=== PATIENT | male | born 1955 | race Caucasian/White ===

== ENCOUNTER → 2017-05-20 08:18 | Outpatient (CLI) | payer BC ==
[~2017-05-20] VITALS: Ht 170.2 cm; Wt 86.4 kg
--- NOTE | ~2017-05-20 | HEMODYNAMI ---
PATIENT:MACIEJ TORRES MEDICAL RECORD: [id number] : 55 LOCATION:[facility] ADMISSION DATE: 05/20/17 Generatedon:05/20/201710:36 Patient name: MACIEJ TORRES Patient #: [id number] : 1955 Date of study: 05/20/2017 Page: Of Hemodynamic Procedure Report Patient Data Patient Demographics Procedure consent was obtained First Name: MACIEJ Gender: Male Last Name: BRIAN : 1955 Middle Initial: R Age: 61 year(s) Patient #: [id number] Race: SSN: [id number] Additional ID: [id number] Contact details Address: [address] [place] [address] [facility] State: [place] City: [place] Zip code: [address] Past Medical History Allergies Allergen Reaction Date Comments Reported Other allergy 05/20/2017 sulfa Admission Admission Data Admission Date: 05/20/2017 Admission Time: 8:18 Lab Results Lab Result Date: 05/20/2017 Lab Result Time: 0:00 Biochemistry Name Units Result Min Max BUN mg/dl 14 --(--*-)-- 7 18 Creatinine mg/dl 0.8 --(-*--)-- 0.6 1.3 CBC Name Units Result Min Max Hemoglobin g/dl 15.9 --(--*-)-- 13.5 17.5 Procedure Procedure Types Cath Procedure Diagnostic Procedure LHC LHC w/Coronaries FFR/IVUS Intra-Coronary IVUS Initial Miscellaneous Procedures Moderate Sedation up to 30 minutes Procedure Description Procedure Date Procedure Date: 05/20/2017 Procedure Start Time: 10:17 Procedure End Time: 10:31 Procedure Staff Name Function Terence Hood MD Performing Physician Matilda Glynn RT Monitor Lucy Calderon RT Scrub Jimbo Hanson RN Nurse Jo Ha RN Nurse Procedure Data Cath Procedure Fluoroscopy Diagnostic fluoroscopy Total fluoroscopy Time: 3 time: 3 min min Diagnostic fluoroscopy Total fluoroscopy dose: 820 dose: 820 mGy mGy Contrast Material Contrast Material Type Amount (ml) Isovue 300 52 Entry Location Entry Primary Successful Side Size Upsize Upsize Entry Closure Succes sful Closure Location (Fr) 1 (Fr) 2 (Fr) Remarks Device Remarks Femoral Right 5 Fr 6 Fr Exoseal artery Short Estimated blood loss: 5 ml Diagnostic catheters Device Type Used For End Catheter Placement MULTIPACK Pigtail 5 Fr LV Angiography catheter MULTIPACK JL 4.0 5Fr Left Coronary catheter Angiography MULTIPACK 3DRC 5Fr Right Coronary catheter Angiography Procedure Complications No complications Procedure Medications Medication Administration Route Dosage 0.9% NaCl I.V. Oxygen NC 2 l/min Lidocaine 2% added to field 20 Heparin Flush Bag added to field 2 bags (1000units/500ml NS) Versed I.V. 1 mg Fentanyl I.V. 50 mcg Fentanyl I.V. 50 mcg Versed I.V. 1 mg Fentanyl I.V. 25 mcg Hemodynamics Rest HGB: 15.9 (g/dl) Heart Rate: 59 (bpm) Pressure Samples Time Site Value (mmHg) Purpose Heart Use Rate(bpm) 10:19 LV 94/23,27 Snapshot 76 10:19 LV 182/36,38 Snapshot 67 Snapshots Pre Cath Intra NCS Post Cath Vital Signs Time Heart Resp SPO2 etCO2 NIBP (mmHg) Rhythm Pain Sedation Rate (ipm) (%) (mmHg) Status Level (bpm) 10:03:22 102 16 96 40.1 126/84(97) NSR 0 (11) 10(A) , No pain 10:07:30 74 16 96 41.6 126/78(100) NSR 0 (11) 10(A) , No pain 10:11:32 67 18 98 46.1 117/94(108) NSR 0 (11) 10(A) , No pain 10:15:29 74 18 96 52.2 135/122(132) NSR 0 (11) 10(A) , No pain 10:19:35 76 20 94 59 156/100(138) NSR 0 (11) 9(A) , No pain 10:23:49 79 16 95 63.6 161/112(141) NSR 0 (11) 9(A) , No pain 10:28:05 85 18 98 65.1 154/118(146) NSR 0 (11) 10(A) , No pain Medications Time Medication Route Dose Verified Delivered Reason Notes Effec tiveness by by 10:01:44 0.9% NaCl I.V. kvo Terence Osorio used for ml/hr Sana Ha RN procedure 10:01:53 Oxygen NC 2 Terence Jo Per l/min Sana Ha RN physician 10:02:02 Lidocaine 2% added 20ml Terence Pratt to to vial Sana Hood MD [employer] 10:02:08 Heparin Flush added 2 Terence Pratt used for Bag to bags Sana Hood MD procedure (1000units/500ml field NS) 10:14:35 Versed I.V. 1 mg Terence Osorio for Sana Ha RN sedation 10:14:43 Fentanyl I.V. 50 Terence Osorio for mcg Sana Ha RN sedation 10:18:09 Fentanyl I.V. 50 Terence Lehmany for mcg Sana Ha RN sedation 10:18:15 Versed I.V. 1 mg Terence Osorio for Sana Ha RN sedation 10:19:27 Fentanyl I.V. 25 Terence Lehmany for mcg Sana Ha RN sedation Procedure Log Time Note 9:56:25 Informed consent obtained and on chart 9:56:29 Diagnostic Cath Status : Elective 9:56:51 Matilda Glynn RT(R) sent for patient. Start room use. 9:56:52 Time tracking: Regular hours 9:56:56 Plan of Care:Hemodynamics will remain stable., Cardiac rhythm will remain stable., Comfort level will be maintained., Respiratory function will remain adequate., Patient/ family verbilizes understanding of procedure., Procedure tolerated without complication., Recovers from procedure without complications.. 9:58:37 Patient received from Pre/Post Procedure Room to CCL 2 Alert and oriented. Tansferred to table in Supine position. 9:58:38 Warm blankets applied, and fransisco hugger turned on for patient comfort. 9:58:38 Correct patient and procedure confirmed by team. 9:58:39 ECG and BP/O2 sat monitors applied to patient. 10:01:44 0.9% NaCl kvo ml/hr I.V. was administered by Jo Ha RN; used for procedure; 10:01:53 Oxygen 2 l/min NC was administered by Jo Ha RN; Per physician; 10:02:02 Lidocaine 2% 20ml vial added to field was administered by Terence Hood MD; to sharp's; 10:02:08 Heparin Flush Bag (1000units/500ml NS) 2 bags added to field was administered by Terence Hood MD; used for procedure; 10:02:16 Vital chart was started 10:04:12 Baseline sample Acquired. 10:04:15 Rhythm: sinus rhythm 10:04:17 Full Disclosure recording started 10:04:30 H&P Date Dictated: 05/12/2017 Within 30 days and on chart., H&P Addendum completed by physician on day of procedure. (MUST COMPLETE FOR ALL OUTPATIENTS). 10:04:31 Pre-procedure instructions explained to patient. 10:04:32 Pre-op teaching completed and patient verbalized understanding. 10:04:33 Family in waiting room. 10:04:35 Patient NPO since Midnight. 10:04:46 Patient allergic to Other allergysulfa 10:04:50 Is the patient allergic to Iodine/contrast media? No. 10:04:51 Was the patient premedicated? No 10:04:52 Is patient on blood thinner?Yes 10:04:55 ACC The patient was administered the following blood thiners within the last 24 hours: ACCPlavix 10:05:00 Patient diabetic? No. 10:05:01 Previous problem with sedation/anesthesia? No ? 10:05:03 Snore? Yes 10:05:04 Sleep apnea? No 10:05:05 Deviated septum? No 10:05:06 Opens mouth fully? Yes 10:05:07 Sticks out tongue? Yes 10:05:09 Airway obstruction? No ? 10:05:13 Dentures? No ? 10:05:16 Pre procedure: right dorsailis pedis pulse 2+ Normal; easily identifiable; not easily obliterated 10:05:19 Pre procedure: left dorsailis pedis pulse 2+ Normal; easily identifiable; not easily obliterated 10:05:22 Patient pain scale 0/10 ?. 10:05:29 IV patent on arrival in right forearm with 0.9% NaCl at O. 10:05:38 reserve left arm 10:07:24 Lab Result : BUN 14 mg/dl 10:07:24 Lab Result : Creatinine 0.8 mg/dl 10:07:24 Lab Result : Hemoglobin 15.9 g/dl 10:07:30 Lab results completed and on chart. 10:07:51 Right groin area was prepped with chlora-prep and draped in sterile fashion 10:07:53 Alarms reviewed by RDominic N. 10:07:54 Sharps counted by scrub and verified by R.N. 10:07:55 Physician arrived 10::56 --------ALL STOP TIME OUT------ 10:07:56 Final Timeout: patient, procedure, and site verified with staff and physician. All members of the team are in agreement. 10:07:58 Right groin site verified by team. 10:08:00 Physical assessment completed. ASA score P 2 - A patient with mild systemic disease as per Terence Hood MD. 10:08:04 Sedation plan: IV Moderate Sedation Medication:Versed, Fentanyl 10:08:10 Use device set Femoral Dx 10:08:12 ACIST Syringe (81851) opened to sterile field. 10:08:12 Bag Decanter (2002S) opened to sterile field. 10:08:13 Medline Cath Pack ([id number]) opened to sterile field. 10:08:14 SHEATH 5FR Joffre (YEQ559) opened to sterile field. 10:08:15 DIAGNOSTIC WIRE .035 260cm J wire (290425) opened to sterile field. 10:08:16 ACIST Hand Control (08503) opened to sterile field. 10:08:16 ACIST Manifold (94007) opened to sterile field. 10:08:18 DIAGNOSTIC Multipack 5Fr catheter set (AS8867) opened to sterile field. 10:08:19 Tegaderm 4 x 4 (1626W) opened to sterile field. 10:12:54 Zero performed for pressure channel P1 10:14:35 Versed 1 mg I.V. was administered by Jo Ha RN; for sedation; 10:14:43 Fentanyl 50 mcg I.V. was administered by Jo Ha RN; for sedation; 10:17:06 Procedure started. 10:17:10 Local anesthetic to right femoral artery with Lidocaine 2% by Terence Hood MD.INITIAL ACCESS ONLY 10:18:09 Fentanyl 50 mcg I.V. was administered by Jo Ha RN; for sedation; 10:18:15 Versed 1 mg I.V. was administered by Jo Ha RN; for sedation; 10::27 Fentanyl 25 mcg I.V. was administered by Jo Ha RN; for sedation; 10::28 A 5 Fr sheath was inserted into the Right Femoral artery 10::41 A MULTIPACK Pigtail 5 Fr catheter was advanced over the wire and used for LV Angiography. 10::58 LV hemodynamics recorded. 10::59 LV gram done using BLANCO 10:20:02 Injector settings: Ml/sec: 5, Volume: 15, 10:20:19 EF : 55 % 10:20:24 Catheter removed. 10:20:33 A MULTIPACK JL 4.0 5Fr catheter was advanced over the wire and used for Left Coronary Angiography. 10:21:23 LCA angiography performed. 10::27 Injector settings: Ml/sec: 3, Volume: 6, 10:22:19 Catheter removed. 10:22:23 A MULTIPACK 3DRC 5Fr catheter was advanced over the wire and used for Right Coronary Angiography. 10:23:23 RCA angiography performed. 10:23:25 Injector settings: Ml/sec: 3, Volume: 6, 10:23:27 Catheter removed. 10:23:27 Proceeding to intervention. 10:23:48 GUIDE 6FR HS I catheter (LA6HSI) opened to sterile field. 10:23:49 [place] IVUS Catheter (06147H) opened to sterile field. 10:23:50 SHEATH 6FR Joffre (VXD056) opened to sterile field. 10:23:56 INFLATOR Merit BasixCompak (MD0432) opened to sterile field. 10:24:12 Sheath upsized to a 6 Fr Short. 10:24:25 6 Fr hs1 guide catheter was inserted over the wire 10:25:42 WHISPER 190cm wire ([id number]) opened to sterile field. 10:25:54 whisper wire advanced. 10:26:49 Wire advanced across lesion. 10:26:58 IVUS catheter advanced over wire. 10:28:18 IVUS pass to RCA lesion performed. 10:28:24 IVUS catheter removed over wire. 10:28:44 EXOSEAL 5Fr (EX500) opened to sterile field. 10:29:20 Wire removed. 10:29:21 Guide catheter removed. 10:29:28 Sheath removed intact; hemostasis achieved with Exoseal to the Right Femoral artery. 10:29:30 Procedure ended.(Physican Out) 10:29:40 Fluoroscopy time 03.00 minutes. 10::44 Fluoroscopy dose: 820 mGy 10::44 Flurop Dose total: 820 10:30:08 Contrast amount:Isovue 300 52ml. 10:30:10 Sharps counted by scrub and verified by R.N. 10:30:13 Insertion/operative site no bleeding no hematoma. 10:30:15 Post-op/insertion site Right Femoral artery dressed using a 4 x 4 and Tegaderm. 10:30:18 Post right femoral artery:stable 10:30:19 Post Procedure Pulses reassessed and unchanged 10:30:22 Post procedure rhythm: unchanged. 10:30:25 Estimated blood loss: 5 ml 10:30:27 Post procedure instruction explained to patient.Patient verbalizes understanding. 10:30:27 Patient needs reinforcement of post procedure teaching. 10:30:45 Procedure type changed to Cath procedure, Diagnostic procedure, LHC, LHC w/Coronaries, FFR/IVUS, Intra-Coronary IVUS Initial, Miscellaneous Procedures, Moderate Sedation up to 30 minutes 10:30:46 Procedure and supply charges have been captured, reviewed, submitted and are correct. 10:30:51 Procedure Complication : No complications 10:30:53 Vital chart was stopped 10:30:53 See physician's report for complete and final results. 10:31:13 Report given to Pre/Post Procedure Room. 10:31:18 Patient transfered to Pre/Post Procedure Room with Stretcher. 10:31:20 Procedure ended. 10:31:20 Full Disclosure recording stopped 10:31:25 End room use (Document Last) Device Usage Item Name Manufacture Quantity Catalog Hospital Part Current Minimal L ot# / Number Charge Number Stock Stock Serial# Code ANTONY Acist 1 67634 250666 521814 221355 20 Syringe [employer] Inc (87951) Systems Inc Bag Microtek 1 285521 64147 684424 5 Decanter Phynd Technologies[employer] Inc Inc. () Medline Cardinal 1 [id number] 065554 51248 533947 5 Cath Pack Health ([id number]) SHEATH 5FR Terumo 1 XYE230 202904 981568 617422 40 Joffre (GOH806) DIAGNOSTIC St [place] 1 242104 278535 218446 424476 30 WIRE .035 260cm J wire (810685) ACIST Hand Acist 1 14097 210101 246122 557018 5 Control Medical (86200) Systems Inc ACIST Acist 1 19914 338516 112207 174329 5 Manifold Medical (51325) Systems Inc DIAGNOSTIC Cardinal 1 DY3862 643016 27187 828618 30 Multipack Health 5Fr catheter set (YW6178) Tegaderm 4 3M 1 1626W 476621 973900 668965 5 x 4 (1626W) MULTIPACK Cardinal 1 675088 5 Pigtail 5 Health Fr catheter MULTIPACK Cardinal 1 890789 5 JL 4.0 5Fr Health catheter MULTIPACK Cardinal 1 366757 5 3DRC 5Fr Health catheter GUIDE 6FR Medtronic 1 LA6HSI 836655 40194 422034 1 HS I catheter (LA6HSI) [place] 1 59139C 880190 369827 487742 8 [place] IVUS Catheter (37811F) SHEATH 6FR Terumo 1 MKQ781 484269 078244 834869 40 Joffre (CTP240) INFLATOR Merit 1 JM8148 922405 100388 885247 15 [facility] BasixCompak (CM0147) WHISPER [place] 1 [id number] 872561 948757 133334 5 190cm wire Vascular (6523276LL) EXOSEAL 5Fr Cardinal 1 EX500 654898 018349 211628 10 (EX500) Health Signature Audit [place] Stage Time Signature Unsigned Intra-Procedure 05/20/2017 Matilda Glynn 10:36:41 AM RT(R) Signatures Monitor : Matilda Glynn RT Signature : Date : Time : [facility] [address] [place] [address]
[~2017-05-20 08:18] MED LIST: AMBIEN5 MG PO; BAYER CHEWABLE81 MG PO; CELEXA20 MG PO; CIPRO XR 5500 MG/BOT PO; FLAGYL500 MG PO; HYDROCODONE-APA1 TAB PO; PLAVIX75 MG PO; RED YEAST RICE600 MG PO
[2017-05-20 08:43] VITALS: BP 126/74; Ht 170.2 cm; Wt 86.4 kg
[2017-05-20 09:01] LABS: BASOPHILS 0.5 % (0-2); EOSINOPHILS 4.4 % (0-7); HEMATOCRIT 47.1 % (42.0-54.0); HEMOGLOBIN 15.9 g/dL (13.5-17.5); IMMATURE GRANULOCYTES 0.5 % (0-5); LYMPHOCYTES 24.4 % (15-50); MCH 29.9 pg (26.0-34.0); MCHC 33.8 g/dL (31.0-37.0); MCV 88.5 fL (80.0-100.0); MEAN PLATELET VOLUME 9.4 fL (7.4-10.4); MONOCYTES 12.5 % (2-11); NEUTROPHILS 57.7 % (40-80); PLATELET COUNT 190 10x3/uL (130-400); RBC 5.32 10x6/uL (4.20-6.10); RDW 13.3 % (11.5-14.5); WBC 6.3 10x3/uL (4.8-10.8)
[2017-05-20 09:10] LABS: CALC OSMOLALITY 275 mosm/kg (275-300); CALCIUM 8.3 mg/dL (8.5-10.1); CARBON DIOXIDE 27.3 mmol/L (21.0-32.0); CHLORIDE - SERUM 102 mmol/L (98-107); CREATININE - SERUM 0.8 mg/dL (0.6-1.3); GLUCOSE 108 mg/dL (74-106); POTASSIUM - SERUM 4.2 mmol/L (3.5-5.1); SODIUM 137 mmol/L (136-145); UREA NITROGEN 14 mg/dL (7-18); eGFR NON AFRICAN AMERICAN > 90 mL/min (90-120)
--- NOTE | 2017-05-20 11:00 | NUR ---
1100 LYING FLAT IN BED. NO RESP DISTRESS. NSR ON PHYSICIAN CREDENTIALING SPECIALIST, RATE 74 W NO C/O CHEST PAIN. PULSES PALP X 4. BRISK CAP REFILL X 4 EXT. FAMILY AT BEDSIDE.
--- NOTE | 2017-05-20 11:11 | NUR ---
VSS WITH CHEST PAIN DENIED 6 FR EXOSEAL R/GROIN CDI NO BLEEDING NO HEMATOMA NOTED INSTRUCTED PATIENT TO KEEP HEAD FLAT ON PILLOW WITH RLE STRAIGTHT
--- NOTE | 2017-05-20 12:02 | NUR ---
PATIENT CONTINUES TO SLEEP WITH NO DISTRESS NOTED. VSS AND FAMILY AT SIDE. 6 FR EXOSEAL R/GROIN CDI
--- NOTE | 2017-05-20 12:36 | NUR ---
PATIENT CONTINUES TO SLEEP WITH NO DISTRESS AT BEDSIDE. R/GROIN CDI
--- NOTE | 2017-05-20 12:59 | NUR ---
VERBAL AND WRITTEN DISCHARGE GONE OVER WITH PATIENT AND FAMILY. ALL VERBALIZED UNDERSTANDING. R/GROIN REMAINS CDI
--- NOTE | 2017-05-20 13:10 | NUR ---
PIV REMOVED WITH DRESSING APPLIED. CHEST PAIN IS DENIED WITH 6 FR EXOSEAL R/GROIN CDI. PATIENT UP TO GET DRESSED FOR DISCHARGE HOME
--- NOTE | 2017-05-20 13:24 | NUR ---
PATIENT TRANSPORTED VIA WC TO PARKING FOR FAMILY TO DRIVE HOME NO DISTRESS R/GROIN CDI
--- NOTE | 2017-05-26 12:15 | OP ---
PATIENT NAME: MACIEJ TORRES MEDICAL RECORD: [id number] :55 LOCATION:D.CAT ADMISSION DATE: SURGEON: YAN FUENTES MD DATE OF OPERATION: 05/20/2017 PROCEDURES: 1. Left heart catheterization. 2. Selective coronary angiography. 3. Left ventriculogram. INDICATION: Chest pain, abnormal nuclear stress test. DESCRIPTION OF PROCEDURE: After informed consent was obtained and after a detailed explanation of the risks, benefits as well as alternative therapies, the patient elected to proceed with angiogram and heart catheterization. The right femoral area was prepped and draped in normal sterile fashion. The right femoral artery was cannulated via modified Seldinger technique with placement of 6-[place] sheath. All catheters exchanged through this sheath. FINDINGS: Left ventriculogram was performed in standard 30-degree BLANCO view, reveals good cardiac wall motion, ejection fraction 55%. SELECTIVE CORONARY ANGIOGRAPHY: 1. Left main showed no significant angiographic disease. 2. Left anterior descending has previously placed stents in the LAD and diagonal, both of these are widely patent. No disease elsewise throughout the LAD or its branches. 3. Left circumflex shows moderate irregularities, but no flow-limiting stenosis. 4. The right coronary artery has previously placed stent. This is widely patent and is confirmed by intravascular ultrasound with no significant restenosis. No disease elsewise throughout the RCA or its branches. OVERALL IMPRESSION: Wide patency of the previously placed stents. No disease elsewise. Continue medical management of the coronary artery disease and cardiac risk factors. TRANSINT:[id number] Voice Confirmation ID: [id number] DOCUMENT ID: [id number] YAN FUENTES MD at 1215 CC: [id number] DICTATION DATE: 05/20/17 1033 DISTRIBUTOR CLEANER: 05/20/17 1251 DEP CLI 05/20/17 [facility] [address] [place] [address]
== END | disposition home or self-care (01) ==
LOC: D.CATH 08:18
PROVIDERS: Internal Medicine Interventional Cardiology
DX: I25.119 Atherosclerotic heart disease of native coronary artery with unspecified angina pectoris (principal); E78.5 Hyperlipidemia, unspecified; I10 Essential (primary) hypertension; Z87.891 Personal history of nicotine dependence; Z01.812 Encounter for preprocedural laboratory examination

== ENCOUNTER → 2017-07-14 10:41 | Outpatient (CLI) | payer BC ==
[2017-05-20 08:43] VITALS: BMI 29.8
== END | disposition home or self-care (01) ==
LOC: D.CT 07-10 13:00
DX: C80.1 Malignant (primary) neoplasm, unspecified (principal); R59.9 Enlarged lymph nodes, unspecified

== ENCOUNTER 2017-11-15 11:37 | Emergency (ER) | payer BC ==
[2017-05-20 08:43] VITALS: BMI 29.8
[2017-11-22 17:08] LABS: AEROBE ID Final report (())
== END 2017-11-15 14:10 | disposition home or self-care (01) ==
LOC: D.ER 11:37
PROVIDERS: Emergency Medicine
DX: K61.1 Rectal abscess (principal)

== ENCOUNTER 2017-11-16 08:57 | Inpatient (IN) | payer BC ==
[~2017-11-16] VITALS: Ht 170.2 cm; Wt 88.1 kg
--- NOTE | ~2017-11-16 | DS ---
PATIENT:MACIEJ TORRES :55 MEDICAL RECORD: [id number] DISCHARGE SUMMARY ADMISSION DATE: 11/16/17 DISCHARGE DATE: 11/18/17 DATE OF ADMISSION: 11/16/2017 DATE OF DISCHARGE: 11/18/2017 CONDITION ON DISCHARGE: Improved. ADMITTING DIAGNOSIS: Perirectal abscess. DISCHARGE DIAGNOSES: Perirectal abscess and history of arteriosclerotic heart disease. HOSPITAL COURSE: This patient is a 62-year-old gentleman who presented to the Emergency Room, was found to have perirectal abscess. The patient had an I&D and packing. He was discharged. The patient had followed up in my office on the day afterwards. He had had nausea and vomiting, was unable to maintain hydration. He had not had a bowel movement in over a week. He had also had fever, chills, and sweats. It was felt the patient should be admitted. PHYSICAL EXAMINATION: GENERAL: He is an ill-appearing white male. VITAL SIGNS: Blood pressure 122/80, pulse 90, respiration 14, and temperature 97. HEENT: Unremarkable. NECK: Supple. There is no adenopathy. HEART: Regular rate. LUNGS: Clear. He had a left perirectal abscess. The packing was removed. Copious amount of purulent serosanguineous fluid returned. Culture was taken. It was felt the patient should be admitted. He was admitted and started on IV antibiotics. He was seen in consultation by Dr. Cortes, local surgeon. The patient was taken to the operating room, where he underwent I&D of perirectal abscess. Cultures were obtained. On the , the patient's white count was 8.3, hemoglobin 12.5, hematocrit 38.2, and his platelets were 257. Sodium was 142, potassium 3, chloride 106, CO2 was 29.5. His BUN is 14, creatinine 0.1. His cultures grew out Enterococcus avium. The patient was stable. He was tolerating his diet well. It was felt the patient could be discharged. The patient was discharged on Levaquin 500 mg p.o. daily for 10 days, clindamycin 600 mg q. 8 hours, Demerol 100 mg tablet one every 4 hours p.r.n. severe pain, Phenergan 25 mg p.o. q. 6 hours p.r.n. nausea and vomiting, aspirin 81 mg once a day, Celexa 20 mg once a day, Ambien 5 mg p.o. at bedtime. The patient is to follow up with me in approximately one week. TRANSINT:[id number] Voice Confirmation ID: [id number] DOCUMENT ID: [id number] DISCHARGE SUMMARY REPORT [id number] MACIEJ TORRES JAMES MD at 0742 CC: [id number] DICTATION DATE: 12/13/17 1047 [facility]: 12/13/17 1552 DIS IN 11/18/17 [place] [address] [place] [id number]
--- NOTE | ~2017-11-16 | HP ---
PATIENT: MACIEJ TORRES MEDICAL RECORD: [id number] ACCOUNT: [id number] LOCATION:[facility] [id number] : 55 ADMISSION DATE: 11/16/17 HISTORY AND PHYSICAL EXAMINATION DATE OF ADMISSION: 11/16/2017 CHIEF COMPLAINT: Rectal pain. HISTORY OF PRESENT ILLNESS: The patient is a 62-year-old male, who presented to the Emergency Room yesterday, was found to have a perirectal abscess. This was I&D and packed. He was advised to follow up with me this morning. The patient states that since yesterday he has had nausea and vomiting nonstop, has not had a BM in over a week. He has had fever, chills, and sweats. Unable to keep any medications down. It is felt the patient has failed outpatient therapy and needs admission. PAST MEDICAL HISTORY: His past history is significant. He has had arteriosclerotic heart disease. He has had stents placed. He has also had history of perirectal abscess in the past. 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 He has had a history of having ADD as well as depression. FAMILY HISTORY: Father had diabetes mellitus, of a CVA. Brother had depression. Mother had emphysema. ALLERGIES: SULFA. MEDICATIONS: Include Adderall 30 mg p.o. every day, Ambien 5 mg p.o. at bedtime p.r.n. insomnia, aspirin 81 mg 1 p.o. every day, Celexa 40 mg once a day, gabapentin 300 mg daily, Prilosec 20 mg daily, tramadol 50 mg 1 or 2 every 6 hours p.r.n. pain. SOCIAL HISTORY: The patient was born and raised in the [facility]. He is the father of 3. 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 He is . He denies any alcohol or tobacco use. REVIEW OF SYSTEMS: GENERAL: He denies any headaches, seizure, or syncope. Denies change in visual or auditory acuity. He has had nausea and vomiting. He has had rectal pain. CARDIOVASCULAR: He denies any chest pain, palpitation, PND, or orthopnea. GASTROINTESTINAL: He has had nausea and vomiting. He has had rectal pain. No melena, hematochezia. GENITOURINARY: No urgency, frequency, or dysuria. PHYSICAL EXAMINATION: VITAL SIGNS: Today, he is currently afebrile at the present time. His weight is 185. Blood pressure 122/80, his pulse 90, respirations are 14, temperature is 97.2. HEENT: Head is normocephalic. No lesions. Ears: TMs clear. Eyes: Pupils equal, round, reactive to light. His extraocular movements are intact. His nasal cavity, oral cavity, oropharynx clear. NECK: Supple. There is no adenopathy. HEART: Regular rate and rhythm without any murmurs, gallops, or rub. LUNGS: Clear. HISTORY AND PHYSICAL [id number] MACIEJ TORRES EXTREMITIES: The patient does have a left perirectal abscess. The packing was removed. Copious amount of purulent serosanguineous fluid returned, approximately 10 cc. The patient has surrounding cellulitis present. ASSESSMENT: Status post perirectal abscess with I&D, history of arteriosclerotic heart disease, depression, history of squamous cell carcinoma resection of left upper arm with axillary resection. PLAN: Since the patient has failed conservative therapy, he will be admitted. He has been seen in the past by Dr. Bernal. He will be placed on Flagyl 500 mg IV every 8 hours, Levaquin 500 mg IV every 24 hours, Zofran 4 mg IV every 4 hours p.r.n. nausea and vomiting, Dilaudid p.r.n. pain. Blood cultures will be obtained. Also, the patient will be placed on D5 normal saline at 125 cc an hour. We will obtain a CT of the pelvic to further assess. TRANSINT:[id number] Voice Confirmation ID: [id number] DOCUMENT ID: [id number] MACIEJ RAGLAND MD at 1250 CC: [id number] DICTATION DATE: 11/16/17833 NET DEVELOPER CONSULTANT: 11/16/17 1119 ADM IN [place] [id number] [place] [address]
--- NOTE | ~2017-11-16 | OP ---
PATIENT NAME: MACIEJ TORRES MEDICAL RECORD: [id number] :55 LOCATION:D. D.2128 ADMISSION DATE:11/16/17 SURGEON: MACIEJ POTTS MD DATE OF OPERATION: 11/16/2017 SURGEON: Maciej Potts MD (JJ) PREOPERATIVE DIAGNOSIS: Left perirectal abscess. POSTOPERATIVE DIAGNOSIS: Left perirectal abscess. PROCEDURES PERFORMED: Incision and drainage of multiloculated complex abscess, 6 x 3 x 3 cm. Rectal examination under anesthesia. ANESTHESIA: General. COMPLICATIONS: None. SPECIMENS: Anaerobic and aerobic cultures. Case was grossly contaminated. OPERATIVE COURSE: After consent was obtained, the patient was taken to the operating room and placed in the supine position on the operating table. Next, general anesthesia was given via endotracheal intubation after time-out was performed to confirm correct patient and procedure. The patient was then placed into the lithotomy position. The perineum was prepped and draped in typical sterile fashion. A 30 cc of local anesthetic was injected circumferentially around for a perineal block. The rectum was sterilely dilated using the Young-Hill retractors. The rectum was copiously irrigated. Multiple large internal hemorrhoids were identified as well as an area of indurated tissue in the approximately 5 o'clock position in the posterior left wall of the rectum. No obvious fistula was identified. Next, the area of fluctuance along the left buttock was incised, approximately 3-cm x 3-cm circumferential removal of skin. A 20 cc of pus was evacuated. Finger dissection was performed breaking up all loculations. The skin opening was 3 cm x 3 cm. Depth of the abscess was approximately 6 cm. The abscess abutted the posterior left wall of the rectum. Again, no obvious fistula formation but significant amount of indurated tissue. Next, anaerobic and aerobic cultures were taken of the abscess cavity. The abscess cavity was copiously irrigated and suctioned. It was then packed with Kerlix soaked in iodine and peroxide. The rectum was packed with Gelfoam and Americaine. At the end of the case, all needle and instrument counts were correct. No complications occurred. The patient was extubated and transferred to the PACU in stable condition. TRANSINT:[id number] Voice Confirmation ID: [id number] DOCUMENT ID: [id number] OPERATIVE REPORT [id number] MACIEJ TORRES MACIEJ POTTS MD at 2151 CC: [id number] DICTATION DATE: 11/16/17 1303 ASSISTANT PROFESSOR OF MUSIC: 11/16/17 1351 ADM IN [place] [id number] [place] [id number]
[2017-11-16 10:14] VITALS: BP 117/80; BMI 29.0
[2017-11-16 10:37] LABS: BASOPHILS 0.3 % (0-2); HEMOGLOBIN 15.8 g/dL (13.5-17.5); IMMATURE GRANULOCYTES 0.6 % (0-5); LYMPHOCYTES 19.9 % (15-50); MCH 30.3 pg (26.0-34.0); MCHC 34.3 g/dL (31.0-37.0); MCV 88.3 fL (80.0-100.0); MEAN PLATELET VOLUME 9.3 fL (7.4-10.4); MONOCYTES 12.5 % (2-11); NEUTROPHILS 65.7 % (40-80); RBC 5.21 10x6/uL (4.20-6.10); RDW 12.7 % (11.5-14.5); WBC 10.2 10x3/uL (4.8-10.8)
[2017-11-16 10:38] LABS: PLATELET COUNT 272 10x3/uL (130-400)
[2017-11-16 10:50] VITALS: BP 117/80
[2017-11-16 10:56] LABS: ALBUMIN 2.9 g/dL (3.4-5.0); ALKALINE PHOSPHATASE 70 U/L (46-116); ALT (SGPT) 19 U/L (10-68); BILIRUBIN - TOTAL 0.73 mg/dL (0.2-1.3); CALC OSMOLALITY 282 mosm/kg (275-300); CALCIUM 8.7 mg/dL (8.5-10.1); CARBON DIOXIDE 31.4 mmol/L (21.0-32.0); CHLORIDE - SERUM 98 mmol/L (98-107); CREATININE - SERUM 0.8 mg/dL (0.6-1.3); GLUCOSE 131 mg/dL (74-106); POTASSIUM - SERUM 3.7 mmol/L (3.5-5.1); PROTEIN - SERUM 6.8 g/dL (6.4-8.2); SODIUM 139 mmol/L (136-145); UREA NITROGEN 22 mg/dL (7-18); eGFR NON AFRICAN AMERICAN > 90 mL/min (90-120)
[2017-11-16 14:05] VITALS: BP 101/63
[2017-11-16 15:55] VITALS: BP 94/67
[2017-11-16 20:00] VITALS: BP 104/71
[2017-11-16 20:14] VITALS: BP 104/71
[2017-11-17] VITALS (7 sets, daily range): BP systolic 84–106; BP diastolic 46–63; Ht 170.2 cm; Wt 88.1 kg
[2017-11-17 04:09] LABS: BASOPHILS 0.1 % (0-2); EOSINOPHILS 0 % (0-7); HEMATOCRIT 40.9 % (42.0-54.0); HEMOGLOBIN 13.8 g/dL (13.5-17.5); IMMATURE GRANULOCYTES 0.5 % (0-5); LYMPHOCYTES 16.2 % (15-50); MCH 30.1 pg (26.0-34.0); MCHC 33.7 g/dL (31.0-37.0); MCV 89.3 fL (80.0-100.0); MEAN PLATELET VOLUME 9.4 fL (7.4-10.4); NEUTROPHILS 73.2 % (40-80); PLATELET COUNT 273 10x3/uL (130-400); RBC 4.58 10x6/uL (4.20-6.10); RDW 12.7 % (11.5-14.5); WBC 10.9 10x3/uL (4.8-10.8)
[2017-11-17 04:24] LABS: CALC OSMOLALITY 283 mosm/kg (275-300); CALCIUM 8.1 mg/dL (8.5-10.1); CARBON DIOXIDE 31.7 mmol/L (21.0-32.0); CHLORIDE - SERUM 103 mmol/L (98-107); GLUCOSE 156 mg/dL (74-106); POTASSIUM - SERUM 3.9 mmol/L (3.5-5.1); SODIUM 139 mmol/L (136-145); UREA NITROGEN 21 mg/dL (7-18); eGFR NON AFRICAN AMERICAN 80 mL/min (90-120)
[2017-11-18 04:19] VITALS: BP 84/48
[2017-11-18 04:54] LABS: BASOPHILS 0.1 % (0-2); EOSINOPHILS 2.2 % (0-7); HEMATOCRIT 38.2 % (42.0-54.0); HEMOGLOBIN 12.5 g/dL (13.5-17.5); IMMATURE GRANULOCYTES 0.4 % (0-5); LYMPHOCYTES 36.4 % (15-50); MCH 29.4 pg (26.0-34.0); MCHC 32.7 g/dL (31.0-37.0); MCV 89.9 fL (80.0-100.0); MEAN PLATELET VOLUME 9.4 fL (7.4-10.4); MONOCYTES 10.7 % (2-11); NEUTROPHILS 50.2 % (40-80); PLATELET COUNT 257 10x3/uL (130-400); RBC 4.25 10x6/uL (4.20-6.10); RDW 12.8 % (11.5-14.5); WBC 8.3 10x3/uL (4.8-10.8)
[2017-11-18 05:14] LABS: CALCIUM 7.8 mg/dL (8.5-10.1); CARBON DIOXIDE 29.5 mmol/L (21.0-32.0); CHLORIDE - SERUM 106 mmol/L (98-107); CREATININE - SERUM 0.9 mg/dL (0.6-1.3); GLUCOSE 121 mg/dL (74-106); SODIUM 142 mmol/L (136-145); eGFR NON AFRICAN AMERICAN > 90 mL/min (90-120)
[2017-11-18 05:16] LABS: CALC OSMOLALITY 284 mosm/kg (275-300); UREA NITROGEN 14 mg/dL (7-18)
[2017-11-18 08:04] VITALS: BP 88/52
[2017-11-18] MEDS ORDERED: LEVAQUIN500 MG PO (11:07)
[2017-11-18] MEDS ORDERED: CLEOCIN HCL300 MG PO (11:08)
[2017-11-18] MEDS ORDERED: PHENERGAN25 M1 PO (11:09)
[2017-11-18] MEDS ORDERED: DEMEROL100 MG PO (11:09)
[2017-11-18 11:43] VITALS: BP 91/55
[2017-12-02 20:09] LABS: AEROBE ID Final report (())
== END 2017-11-18 15:47 | disposition home health service (06) | DRG 395 ==
LOC: D.M2 08:57
PROVIDERS: Family Medicine; Surgery
PROC: 0D9P3ZZ Drainage of Rectum, Percutaneous Approach (ICD-10-PCS; principal; 2017-11-16 09:15)
DX: K61.1 Rectal abscess (principal); I25.10 Atherosclerotic heart disease of native coronary artery without angina pectoris; Z95.5 Presence of coronary angioplasty implant and graft; F32.9 Major depressive disorder, single episode, unspecified

== ENCOUNTER 2018-04-19 13:52 | Outpatient (CLI) | payer BC ==
[~2018-04-19] VITALS: Ht 170.2 cm; Wt 87.1 kg
--- NOTE | ~2018-04-19 | OP ---
PATIENT NAME: MACIEJ TORRES MEDICAL RECORD: [id number] :55 LOCATION:D.M2 D.2124 ADMISSION DATE:04/19/18 SURGEON: YAN FUENTES MD DATE OF OPERATION: 04/19/2018 PROCEDURES: 1. PTCA stent LAD diagonal. 2. Left heart catheterization. 3. Selective coronary angiography. 4. Left ventriculogram. INDICATION: Chest pain compatible with angina. DESCRIPTION OF PROCEDURE: After informed consent was obtained and after a detailed description of the risks, benefits as well as alternative therapies, the patient elected to proceed with angiogram and angioplasty. The right femoral area was prepped and draped in normal sterile fashion. Right femoral artery was cannulated via modified Seldinger technique with placement of 7-Niuean sheath. All catheters exchanged through this sheath. FINDINGS: Left ventriculogram was performed in standard 30-degree BLANCO view, reveals good cardiac wall motion throughout all segments. Overall ejection fraction estimated 60%. SELECTIVE CORONARY ANGIOGRAPHY: 1. Left main is with no significant angiographic disease. 2. Left anterior descending has previously placed stents in the LAD as well as the LAD diagonal. The diagonal has 80% stenosis after the previously placed stent. 3. The left circumflex has moderate irregularities, but no flow-limiting stenosis. 4. The right coronary artery has previously placed stent that is widely patent with no significant restenosis. No disease elsewise throughout the RCA or its branches. PTCA STENT OF THE LAD DIAGONAL: The stent used was a 2.25 x 12 mm Joes. Result was 0% residual stenosis. OVERALL IMPRESSION: Successful percutaneous transluminal coronary angioplasty stent of the left anterior descending diagonal going from 80% initial stenosis to 0% residual. TRANSINT:[id number] Voice Confirmation ID: [id number] DOCUMENT ID: [id number] YAN FUENTES MD at 1059 CC: [id number] DICTATION DATE: 04/19/181838 SLEDGER: 04/19/182051 DIS IN 04/20/18 [place] [id number]
--- NOTE | ~2018-04-19 | MORECARE ---
CASE MANAGEMENT DISCHARGE SUMMARY PATIENT: MACIEJ TORRES UNIT: [id number] ADM DATE: 04/19/18 AGE: 62 : 55 SEX: M ROOM/BED: D.2124 AUTHOR: JAME CASTILLO PHYSICIAN: REFERRING PHYSICIAN: AYN FUENTES MD DATE OF SERVICE: 04/21/18 Discharge Plan Patient Name: MACIEJ TORRES Facility: [facility]:[place] : 1955 Planned Disposition: Home Anticipated Discharge Date: 04/20/18 Discharge Date: 04/20/2018 Expected LOS: 1 Initial Reviewer: [id number] Initial Review Date: 04/21/2018 Generated: 04/21/18 9:08 am Patient Name: MACIEJ TORRES Page [id number] at 0809 All edits/amendments must be made on the electronic document DICTATION DATE: 04/21/18807 SHREDDER OPERATOR: EDY 04/21/18807 RPT#: [id number] DC DATE:04/20/18 STATUS: DIS IN [facility] [address] [place] [address] END OF REPORT
--- NOTE | ~2018-04-19 | HEMODYNAMI ---
PATIENT:MACIEJ TORRES MEDICAL RECORD: [id number] : 55 LOCATION:[facility]# [id number] ADMISSION DATE: 04/19/18 Generatedon:04/19/201818:39 Patient name: MACIEJ TORRES Patient #: [id number] : 1955 Date of study: 04/19/2018 Page: Of Hemodynamic Procedure Report Patient Data Patient Demographics Procedure consent was obtained First Name: MACIEJ Gender: Male Last Name: BRIAN : 1955 [facility] Initial: R Age: 62 year(s) Patient #: [id number] Race: SSN: [id number] Additional ID: [id number] Contact details Address: [address] [place] [address] State: [place] City: [place] Zip code: [address] Past Medical History Allergies Allergen Reaction Date Comments Reported Other allergy 05/20/2017 sulfa Sulfa drugs 04/19/2018 Admission Admission Data Admission Date: 04/19/2018 Admission Time: 16:26 Room #: D.T04 Weight (lbs.): 190.26 Weight (kg.): 86.3 Lab Results Lab Result Date: 04/19/2018 Lab Result Time: 0:00 Biochemistry Name Units Result Min Max BUN mg/dl 12 --(-*--)-- 7 18 Creatinine mg/dl 0.8 --(-*--)-- 0.6 1.3 CBC Name Units Result Min Max Hemoglobin g/dl 17.2 --(---*)-- 13.5 17.5 Procedure Procedure Types Cath Procedure Diagnostic Procedure [facility] w/Coronaries Sedation Charges Moderate Sedation up to 15 minutes PCI Procedure Coronary Stent Coronary Stent Initial Procedure Description Procedure Date Procedure Date: 04/19/2018 Procedure Start Time: 18:11 Procedure End Time: 18:37 Procedure Staff Name Function Terence Hood MD Performing Physician Awilda Maciel RT Monitor Huy Pyle RT Scrub Andres Vasquez RN Nurse Procedure Data Cath Procedure Fluoroscopy Diagnostic fluoroscopy Total fluoroscopy Time: 9.3 time: 9.3 min min Diagnostic fluoroscopy Total fluoroscopy dose: 803 dose: 803 mGy mGy Contrast Material Contrast Material Type Amount (ml) Isovue 300 119 Entry Location Entry Primary Successful Side Size Upsize Upsize Entry Closure Succes sful Closure Location (Fr) 1 (Fr) 2 (Fr) Remarks Device Remarks Femoral Right 6 Fr 7 Fr Exoseal artery Short Short Estimated blood loss: 10 ml Diagnostic catheters Device Type Used For End Catheter Placement MULTIPACK Pigtail 5 Fr Procedure catheter MULTIPACK JL 4.0 5Fr Procedure catheter MULTIPACK 3DRC 5Fr Procedure catheter Procedure Complications No complications Procedure Medications Medication Administration Route Dosage Oxygen NC 2 l/min 0.9% NaCl I.V. 100 ml/hr Heparin Flush Bag added to field 2 bags (1000units/500ml NS) Fentanyl I.V. 50 mcg Versed I.V. 1 mg Fentanyl I.V. 50 mcg Versed I.V. 1 mg Heparin Bolus I.V. 4000 units Integrilin (Bolus I.V. 7.9 ml 2mg/ml) Integrilin (Bolus wasted 2.1 ml 2mg/ml) Hemodynamics Rest HGB: 17.2 (g/dl) Heart Rate: 75 (bpm) Snapshots Pre Cath Intra NCS Post Cath Vital Signs Time Heart Resp SPO2 etCO2 NIBP (mmHg) Rhythm Pain Sedation Rate (ipm) (%) (mmHg) Status Level (bpm) 18:01:21 72 18 98 0 130/93(120) NSR 0 (11) 10(A) , No pain 18:05:31 72 16 98 0 143/84(108) NSR 0 (11) 10(A) , No pain 18:09:47 78 17 98 0 135/87(117) NSR 0 (11) 10(A) , No pain 18:13:57 78 17 97 0 145/92(109) NSR 0 (11) 10(A) , No pain 18:18:09 83 17 97 0 141/86(115) NSR 0 (11) 10(A) , No pain 18:22:23 87 17 97 0 138/82(115) NSR 0 (11) 10(A) , No pain 18:26:32 90 17 98 0 139/93(108) NSR 0 (11) 10(A) , No pain 18:30:44 91 17 98 0 142/97(110) NSR 0 (11) 10(A) , No pain 18:34:59 90 17 98 0 148/87(107) NSR 0 (11) 10(A) , No pain Medications Time Medication Route Dose Verified Delivered Reason Notes Effectiveness by by 18:08:12 Oxygen NC 2 Terence Campos Per physician l/min Sana Vasquez RN 18:10:54 0.9% NaCl I.V. 100 Terence Heady Per physician ml/hr Sana Vasquez RN 18:11:51 Heparin Flush added 2 Terence Campos used for Bag to bags Sana Vasquez RN procedure (1000units/500ml field NS) 18:12:21 Fentanyl I.V. 50 Terence Heady for sedation mcg Sana Vasquez RN 18:12:28 Versed I.V. 1 mg Terence Campos for sedation Sana Vasquez RN 18:16:52 Fentanyl I.V. 50 Terence Campos for sedation mcg Sana Vasquez RN 18:16:56 Versed I.V. 1 mg Terence Campos for sedation Sana Vasquez RN 18:17:42 Heparin Bolus I.V. 4000 Terence Campos for units Sana Vasquez RN anticoagulation 18:19:37 Integrilin I.V. 7.9 Terence Campos for (Bolus 2mg/ml) ml Sana Vasquez RN antiplatelet therapy 18:19:46 Integrilin wasted 2.1 Terence Campos for (Bolus 2mg/ml) ml Sana Vasquez RN antiplatelet therapy Procedure Log Time Note 17:40:33 Andres Vasquez RN sent for patient. Start room use. 17:45:41 Time tracking: Stay late (Procedures after 5:00pm) 17:45:52 Plan of Care:Hemodynamics will remain stable., Cardiac rhythm will remain stable., Comfort level will be maintained., Respiratory function will remain adequate., Patient/ family verbilizes understanding of procedure., Procedure tolerated without complication., Recovers from procedure without complications.. 17:45:53 Signed procedure consent form obtained from patient. 17:45:57 H&P Date Dictated: 04/19/2018 ER History on chart.. 17:46:09 Patient allergic to Sulfa drugs 17:46:32 Lab Result : Creatinine 0.8 mg/dl 17:46:32 Lab Result : BUN 12 mg/dl 17:46:32 Lab Result : Hemoglobin 17.2 g/dl 17:55:12 Patient received from ED to CCL 1 Alert and oriented. Tansferred to table in Supine position. 17:55:14 Warm blankets applied, and fransisco hugger turned on for patient comfort. 17:55:15 Correct patient and procedure confirmed by team. 17:55:16 ECG and BP/O2 sat monitors applied to patient. 18:00:23 Vital chart was started 18:03:52 Baseline sample Acquired. 18:03:56 Rhythm: sinus rhythm 18:03:57 Full Disclosure recording started 18:03:57 Pre-op teaching completed and patient verbalized understanding. 18:03:58 Pre-procedure instructions explained to patient. 18:04:00 Family in waiting room. 18:04:07 Is the patient allergic to Iodine/contrast media? No. 18:04:09 Is patient on blood thinner?Yes 18:04:19 PRELOADED ON PLAVIX 18:04:21 Patient diabetic? No. 18:04:24 Previous problem with sedation/anesthesia? No ? 18:04:57 Snore? No 18:04:59 Sleep apnea? No 18:05:00 Deviated septum? No 18:05:00 Opens mouth fully? Yes 18:05:01 Sticks out tongue? Yes 18:05:03 Airway obstruction? No ? 18:05:04 Dentures? No ? 18:05:08 Pre procedure: right dorsailis pedis pulse 2+ Normal; easily identifiable; not easily obliterated 18:05:14 Patient pain scale 0/10 ?. 18:05:18 IV patent on arrival in right antecubital with 0.9% NaCl at O. 18:05:49 Lab results completed and on chart. 18:05:54 Right groin area was prepped with chlora-prep and draped in sterile fashion 18:06:02 RESERVE LEFT ARM 18:06:03 Alarms reviewed by R. N. 18:06:03 Sharps counted by scrub and verified by R.N. 18:06:07 Use device set Femoral Dx 18:06:08 ACIST Syringe (84321) opened to sterile field. 18:06:08 Bag Decanter (2002S) opened to sterile field. 18:06:09 ACIST Hand Control (49080) opened to sterile field. 18:06:10 ACIST Manifold (02491) opened to sterile field. 18:06:11 Tegaderm 4 x 4 (1626W) opened to sterile field. 18:06:12 Medline Cath Pack ([id number]) opened to sterile field. 18:06:13 DIAGNOSTIC WIRE .035 260cm J wire (053842) opened to sterile field. 18:06:14 DIAGNOSTIC Multipack 5Fr catheter set (LJ8801) opened to sterile field. 18:06:21 SHEATH 6FR Northwood (YUM407) opened to sterile field. 18:07:19 --------ALL STOP TIME OUT------ 18:07:20 Final Timeout: patient, procedure, and site verified with staff and physician. All members of the team are in agreement. 18:07:23 Right groin site verified by team. 18:07:25 Physical assessment completed. ASA score P 2 - A patient with mild systemic disease as per Terence Hood MD. 18:07:28 Sedation plan: IV Moderate Sedation Medication:Versed, Fentanyl 18:08:12 Oxygen 2 l/min NC was administered by Andres Vasquez RN; Per physician; 18:10:29 Procedure started. 18:10:32 Zero performed for pressure channel P1 18:10:54 0.9% NaCl 100 ml/hr I.V. was administered by Andres Vasquez RN; Per physician; 18:11:47 Local anesthetic to right femoral artery with Lidocaine 2% by Terence Hood MD.INITIAL ACCESS ONLY 18:11:51 Heparin Flush Bag (1000units/500ml NS) 2 bags added to field was administered by Andres Vasquez RN; used for procedure; 18:12:21 Fentanyl 50 mcg I.V. was administered by Andres Vasquez RN; for sedation; 18:12:25 A 6 Fr Short sheath was inserted into the Right Femoral artery 18:12:28 Versed 1 mg I.V. was administered by Andres Vasquez RN; for sedation; 18:12:37 A MULTIPACK Pigtail 5 Fr catheter was advanced over the wire and used for Procedure. 18:13:02 LV gram done using BLANCO 18:13:06 Injector settings: Ml/sec: 10, Volume: 20, 18:13:23 EF : 60 % 18:13:25 Catheter removed. 18:13:39 A MULTIPACK JL 4.0 5Fr catheter was advanced over the wire and used for Procedure. 18:14:33 LCA angiography performed. 18:14:35 Catheter removed. 18:14:45 CHOICE PT Extra Support 182cm wire ([id number]) opened to sterile field. 18:14:46 INFLATOR Merit BasixCompak (OE9030) opened to sterile field. 18:14:53 A MULTIPACK 3DRC 5Fr catheter was advanced over the wire and used for Procedure. 18:15:16 RCA angiography performed. 18:15:18 Catheter removed. 18:15:24 GUIDE 6FR XBLAD 4.0 catheter ([id number]) opened to sterile field. 18:16:08 6 Fr XBLAD 4 guide catheter was inserted over the wire 18:16:52 Fentanyl 50 mcg I.V. was administered by Andres Vasquez RN; for sedation; 18:16:56 Versed 1 mg I.V. was administered by Andres Vasquez RN; for sedation; 18:17:03 CHOICE ES 182 wire advanced. 18:17:24 Wire advanced across lesion. 18:17:30 Patient Weight : 190.26 lbs 18:17:42 Heparin Bolus 4000 units I.V. was administered by Andres Vasquez RN; for anticoagulation; 18:17:57 Inflate balloon Inflation number: 1 A EUPHORA 2.0 x 15 Balloon ([id number]) was prepped and advanced across the 1st Diag, then inflated to 17 WINSTON for 0:10 (min:sec). 18:18:06 Balloon removed over the wire. 18:19:37 Integrilin (Bolus 2mg/ml) 7.9 ml I.V. was administered by Andres Vasquez RN; for antiplatelet therapy; 18:19:46 Integrilin (Bolus 2mg/ml) 2.1 ml wasted was administered by Andres Vasquez RN; for antiplatelet therapy; 18:20:21 The JAMAL RX 2.25 x 12 stent ([id number]) was advanced then removed because of failure to cross lesion 18:20:25 Stent catheter was removed intact over wire. 18:20:25 Wire removed. 18:20:26 Guide catheter removed. 18:20:36 UPSIZE TO 7FR 18:20:43 SHEATH 7FR Northwood (KZL267) opened to sterile field. 18:20:54 Sheath upsized to a 7 Fr Short. 18:21:31 GUIDE 7FR EBU 4.0 catheter ([id number]) opened to sterile field. 18:21:37 7 Fr EBU 4 guide catheter was inserted over the wire 18:22:10 CHOICE ES 182 wire advanced. 18:22:30 EXOSEAL 7Fr (EX700) opened to sterile field. 18:24:08 WIRE REMOVED. NEW WIRE NEEDED. 18:24:14 CHOICE PT Extra Support 182cm wire ([id number]) opened to sterile field. 18:25:11 CHOICE ES 182 wire advanced. 18:25:13 Wire advanced across lesion. 18:26:18 Inflation number: 2 The EUPHORA 2.0 x 15 Balloon ([id number]) was reinflated across the 1st Diag, to 21 WINSTON for 0:10 (min:sec). 18:27:00 Balloon removed over the wire. 18:29:12 Inflate balloon Inflation number: 3 A EUPHORA 2.5 x 10 Balloon ([id number]) was prepped and advanced across the 1st Diag, then inflated to 9 WINSTON for 0:00 (min:sec). 18:29:24 Balloon removed over the wire. 18:31:29 The JAMAL RX 2.25 x 12 stent ([id number]) was advanced then removed because of failure to cross lesion 18:32:14 Place stent Inflation Number: 4 A JAMAL RX 2.25 x 12 stent ([id number]) was prepped and advanced across the 1st Diag. The stent was deployed at 13 WINSTON for 0:10 (min:sec). 18:32:31 Stent catheter was removed intact over wire. 18:32:31 Wire removed. 18:32:33 Guide catheter removed. 18:33:25 Sheath removed intact; hemostasis achieved with Exoseal to the Right Femoral artery. 18:33:28 Procedure ended.(Physican Out) 18:33:56 Fluoroscopy time 09.30 minutes. 18:34:00 Fluoroscopy dose: 803 mGy 18:34:00 Flurop Dose total: 803 18:34:03 Contrast amount:Isovue 300 119ml. 18:34:04 Sharps counted by scrub and verified by R.N. 18:34:07 Post-op/insertion site Right Femoral artery dressed using a 4 x 4 and Tegaderm. 18:34:11 Post right femoral artery:stable, soft, clean and dry 18:34:15 Post-procedure physical assessment completed. ASA score P 2 - A patient with mild systemic disease as per Terence Hood MD. 18:34:19 Post procedure rhythm: sinus rhythm 18:34:21 Estimated blood loss: 10 ml 18:34:22 Post procedure instruction explained to patient.Patient verbalizes understanding. 18:34:23 Patient needs reinforcement of post procedure teaching. 18:34:50 Procedure type changed to Cath procedure, Diagnostic procedure, LHC, LHC w/Coronaries, Sedation Charges, Moderate Sedation up to 15 minutes, PCI procedure, Coronary Stent, Coronary Stent Initial 18:36:25 Procedure and supply charges have been captured, reviewed, submitted and are correct. 18:36:27 Procedure Complication : No complications 18:37:13 Vital chart was stopped 18:37:16 See physician's report for complete and final results. 18:37:19 Report given to PCU. 18:37:22 Patient transfered to PCU with Bed. 18:37:24 Procedure ended. 18:37:24 Full Disclosure recording stopped 18:37:27 End room use (Document Last) Intervention Summary Intervention Notes Time ActionType Lesion and Equipment Used Action# Pressure Duration Attributes 18:17:57 Inflate 1st Diag EUPHORA 2.0 x 1 17 00:10 balloon 15 Balloon ([id number]) 18:20:21 Discard JAMAL RX 2.25 x Stent 12 stent ([id number]) 18:26:18 Reinflate 1st Diag EUPHORA 2.0 x 2 21 00:10 balloon 15 Balloon ([id number]) 18:29:12 Inflate 1st Diag EUPHORA 2.5 x 3 9 00:00 balloon 10 Balloon ([id number]) 18:31:29 Discard JAMAL RX 2.25 x Stent 12 stent ([id number]) 18:32:14 Place stent 1st Diag JAMAL RX 2.25 x 4 13 00:10 12 stent ([id number]) Device Usage Item Name Manufacture Quantity Catalog Number Hospital Part Current M inimal Lot# / Charge Number Stock Stock Serial# Code ACIST Syringe Acist 1 59169 940835 750568 917272 2 0 (92269) Medical Systems Inc Bag Decanter Microtek 1 2001S 481722 27667 954155 5 () Medical Inc. ACIST Hand Acist 1 49336 284233 616981 323950 5 Control Medical (99369) Systems Inc ACIST Manifold Acist 1 11047 953785 764546 377317 5 (35508) Medical Systems Inc Tegaderm 4 x 4 3M 1 1626W 572624 366847 432294 5 (1626W) Medline Cath Medline 1 [id number] 248319 94625 631546 5 Pack ([id number]) DIAGNOSTIC St Chele 1 136980 729236 021716 747932 3 0 WIRE .035 260cm J wire (865555) DIAGNOSTIC Cardinal 1 FZ8776 987713 38755 415774 3 0 Multipack 5Fr Health catheter set (EE5762) SHEATH 6FR Terumo 1 RIT928 926839 864825 123933 4 0 Northwood (GHL543) MULTIPACK Cardinal 1 954424 5 Pigtail 5 Fr Health catheter MULTIPACK JL Cardinal 1 595073 5 4.0 5Fr Health catheter CHOICE PT Delphi 2 [id number] 654841 331394 906511 5 Extra Support Scientific 182cm wire ([id number]) INFLATOR Merit Merit 1 VA7922 162632 241307 751214 1 5 SecondMic (HN1343) MULTIPACK 3DRC Cardinal 1 888037 5 5Fr catheter Health GUIDE 6FR Cardinal 1 [id number] 714982 765207 892804 3 XBLAD 4.0 Health catheter (00946921) EUPHORA 2.0 x Medtronic 1 [id number] 729522 863242 740498 5 [id number] 15 Balloon ([id number]) JAMAL RX 2.25 x Medtronic 1 [id number] 225593 0273959 382388 5 [id number] 12 stent ([id number]) SHEATH 7FR Terumo 1 XDS230 271191 744943 881923 5 Northwood (SMD686) GUIDE 7FR EBU Medtronic 1 [id number] 698492 609147 195370 0 4.0 catheter ([id number]) EXOSEAL 7Fr Cardinal 1 EX700 565166 608737 717058 5 (EX700) Health EUPHORA 2.5 x Medtronic 1 [id number] 809944 579294 070384 5 [id number] 10 Balloon ([id number]) Signature Audit Iron Stage Time Signature Unsigned Intra-Procedure 04/19/2018 Awilda Maciel 6:39:43 PM RT(R) Signatures Monitor : Awilda Maciel Signature : RT Date : Time : [place] [id number] [place] [address]
[~2018-04-19 13:52] MED LIST changes: +CLEOCIN HCL300 MG PO; +DEMEROL100 MG PO; +LEVAQUIN500 MG PO; +PHENERGAN25 M1 PO
[2018-04-19 14:22] LABS: BASOPHILS 0.4 % (0-2); EOSINOPHILS 1.3 % (0-7); HEMATOCRIT 49.2 % (42.0-54.0); HEMOGLOBIN 17.2 g/dL (13.5-17.5); IMMATURE GRANULOCYTES 0.4 % (0-5); LYMPHOCYTES 29.4 % (15-50); MCH 30.2 pg (26.0-34.0); MCV 86.5 fL (80.0-100.0); MEAN PLATELET VOLUME 9.3 fL (7.4-10.4); MONOCYTES 9.7 % (2-11); NEUTROPHILS 58.8 % (40-80); PLATELET COUNT 230 10x3/uL (130-400); RBC 5.69 10x6/uL (4.20-6.10); RDW 13.1 % (11.5-14.5); WBC 9.3 10x3/uL (4.8-10.8)
[2018-04-19 14:35] LABS: APTT 27.5 SECONDS (22.8-39.4); INR 1.02 (0.85-1.17)
[2018-04-19 14:46] LABS: ALBUMIN 3.4 g/dL (3.4-5.0); ALKALINE PHOSPHATASE 80 U/L (46-116); ALT (SGPT) 24 U/L (10-68); BILIRUBIN - TOTAL 0.69 mg/dL (0.2-1.3); CALC OSMOLALITY 281 mosm/kg (275-300); CALCIUM 8.6 mg/dL (8.5-10.1); CHLORIDE - SERUM 104 mmol/L (98-107); CREATININE - SERUM 0.8 mg/dL (0.6-1.3); GLUCOSE 144 mg/dL (74-106); POTASSIUM - SERUM 3.9 mmol/L (3.5-5.1); PROTEIN - SERUM 7.7 g/dL (6.4-8.2); SODIUM 140 mmol/L (136-145); UREA NITROGEN 12 mg/dL (7-18); eGFR NON AFRICAN AMERICAN > 90 mL/min (90-120)
[2018-04-19 14:50] LABS: CKMB 1.9 U/L (0.0-3.6); LIPASE 126 U/L (73-393); TROPONIN-I < 0.017 ng/mL (0.000-0.060)
[2018-04-19 15:00] VITALS: BP 127/81
[2018-04-19 16:47] LABS: CKMB 1.5 U/L (0.0-3.6); CREATINE KINASE 135 UL (21-232)
[2018-04-19 16:48] LABS: TROPONIN-I < 0.017 ng/mL (0.000-0.060)
[2018-04-19 17:21] VITALS: BP 145/86
[2018-04-19 22:12] VITALS: BP 116/66
[2018-04-20 00:13] VITALS: Ht 170.2 cm; Wt 87.1 kg
[2018-04-20 01:13] VITALS: BP 107/61
[2018-04-20 05:01] VITALS: BP 108/52
[2018-04-20 06:29] LABS: BASOPHILS 0.4 % (0-2); EOSINOPHILS 2.8 % (0-7); HEMATOCRIT 45.5 % (42.0-54.0); HEMOGLOBIN 15.3 g/dL (13.5-17.5); IMMATURE GRANULOCYTES 0.4 % (0-5); LYMPHOCYTES 20.6 % (15-50); MCH 29.6 pg (26.0-34.0); MCHC 33.6 g/dL (31.0-37.0); MEAN PLATELET VOLUME 9.4 fL (7.4-10.4); MONOCYTES 12.6 % (2-11); NEUTROPHILS 63.2 % (40-80); PLATELET COUNT 194 10x3/uL (130-400); RBC 5.17 10x6/uL (4.20-6.10); RDW 13.6 % (11.5-14.5); WBC 7.5 10x3/uL (4.8-10.8)
[2018-04-20 06:59] LABS: ALBUMIN 2.8 g/dL (3.4-5.0); ALKALINE PHOSPHATASE 77 U/L (46-116); ALT (SGPT) 19 U/L (10-68); BILIRUBIN - TOTAL 0.58 mg/dL (0.2-1.3); CALC OSMOLALITY 276 mosm/kg (275-300); CARBON DIOXIDE 26.4 mmol/L (21.0-32.0); CHLORIDE - SERUM 105 mmol/L (98-107); CREATININE - SERUM 0.9 mg/dL (0.6-1.3); GLUCOSE 109 mg/dL (74-106); POTASSIUM - SERUM 4.1 mmol/L (3.5-5.1); PROTEIN - SERUM 6.5 g/dL (6.4-8.2); SODIUM 138 mmol/L (136-145); UREA NITROGEN 13 mg/dL (7-18); eGFR NON AFRICAN AMERICAN > 90 mL/min (90-120)
[2018-04-20 08:13] VITALS: BP 106/68
[2018-04-20] MEDS ORDERED: PLAVIX75 MG PO (09:26)
== END 2018-04-20 10:15 | disposition home or self-care (01) ==
LOC: OBSVTIME → D.OPS 13:52 → D.ER 13:52 → D.EDHOLD 16:26 → D.ER 16:26 → D.EDHOLD 16:26 → OBSVTIME 16:27 → D.ER 17:50 → D.M2 18:45 → D.EDHOLD 18:45 → D.M2 04-20 10:15 → D.OPS 04-20 10:15
PROVIDERS: Family Medicine
DX: I25.110 Atherosclerotic heart disease of native coronary artery with unstable angina pectoris (principal); Z95.5 Presence of coronary angioplasty implant and graft; I45.2 Bifascicular block